=== PATIENT | female | born 2000 | race Two or more races ===

== ENCOUNTER 2024-09-06 15:46 | Emergency (ER) | payer SELFPAY ==
[2024-09-06 15:54] VITALS: BP 137/68; PULSE 147; RESP 20; TEMP 38.8; O2SAT 96
--- NOTE | 2024-09-06 16:00 | ED.ALLEREA ---
HPI - Allergic Reaction General Chief complaint: Allergic Reaction Stated complaint: allergic reaction Time Seen by Provider: 09/06/24 16:00 Focused HPI: Patient is a 24-year-old female who presents the ED with report of fever and cough. Patient reports she was started on clindamycin yesterday for an infection of her left lower wisdom tooth. This was prescribed by her dentist. She developed a cough last night, which has persisted into today. Also c/o fatigue, body aches, sore throat, BAL. Reported fever at home prior to arrival was 102F. Has not taken anything for her symptoms. Denies sick contacts. Denies rash or itching. Denies shortness of breath aside from with coughing fits. Denies difficulty swallowing. GENERAL: Mildly ill-appearing, morbidly obese with BMI of 42.3, and in no acute distress. HEAD: Normocephalic, atraumatic. ENT: No focal abscess surrounding L wisdom tooth, no significant gum inflammation. No drainage. MMs moist. CHEST: Clear to auscultation. ?No respiratory distress. Frequent coughing on exam. HEART: Tachycardic with regular rhythm.? NEURO: ?Alert and oriented x3. Patient screened in triage and initial orders placed.? ?Additional care and disposition to be based upon?diagnostic testing and treatment. Source: patient Mode of arrival: ambulatory Limitations: no limitations Related Data Allergies Allergy/AdvReac Type Severity Reaction Status Date / Time No Known Allergies Allergy Verified 09/06/24 15:59 Course Vital Signs Vital signs: Vital Signs Temperature 101.9 F H 09/06/24 15:54 Pulse Rate 147 H 09/06/24 15:54 Respiratory Rate 20 09/06/24 15:54 Blood Pressure 137/68 09/06/24 15:54 Pulse Oximetry 96 09/06/24 15:54 Oxygen Delivery Room Air 09/06/24 15:54 Temperature 101.9 F H 09/06/24 15:54 Pulse Rate 147 H 09/06/24 15:54 Respiratory Rate 20 09/06/24 15:54 Blood Pressure 137/68 09/06/24 15:54 Pulse Oximetry 96 09/06/24 15:54 Oxygen Delivery Room Air 09/06/24 15:54 MDM - Allergic Reaction MDM Narrative Medical decision making narrative: MSE by BALA in triage. Patient left the facility after initial MSE prior to any further workup or care. Discharge Plan Discharge Clinical Impression: Cough Qualifiers: Cough type: unspecified Qualified Code(s): R05.9 - Cough, unspecified Fever Qualifiers: Fever type: unspecified Qualified Code(s): R50.9 - Fever, unspecified Patient Disposition: Elopement After Seen by Prov Condition: Stable Patient Language: [place] Follow-up/Referrals: PHYSICIAN,NUT THREADER [Primary Care Provider] -
--- NOTE | 2024-09-06 18:24 | PC.NURSE ---
while this RN was checking a new patient in they tell ED security they will be leaving ED. pt ambulates with steady gait.
== END 2024-09-06 18:24 | disposition left against medical advice (07) ==
LOC: ANHED 18:52
PROVIDERS: Emergency Provider Physician Assistant
DX: R50.9 Fever, unspecified (principal); R05.9 Cough, unspecified; E66.01 Morbid (severe) obesity due to excess calories; Z68.41 Body mass index [BMI] 40.0-44.9, adult
CPT/HCPCS: 99281; 99283

== ENCOUNTER 2025-01-29 00:37 | Emergency (ER) | payer BC, SELFPAY ==
--- NOTE | ~2025-01-29 | CT_ITS ---
Non-contrast CT scan of the Abdomen and Pelvis Clinical indication: Left flank pain Technique: 2.5 mm axial scans were obtained through the abdomen and pelvis without intravenous or or al contrast. Dose reduction technique was used on this scan by utilizing automated exposure control a nd iterative reconstruction technique. The dose-length product (DLP) was 640.06 mGy-cm. Findings: Images through the lung bases reveal no abnormalities. There is a 3.5 mm stone at the left UVJ, with mild left hydroureteronephrosis. No right renal or righ t ureteral stone. No right hydronephrosis. The liver, spleen, pancreas, gallbladder, and adrenals appear normal. There is no aortic aneurysm. There is no evidence of bowel obstruction. Images through the pelvis were performed. There is no evidence of ascites or lymphadenopathy. Urinary bladder otherwise unremarkable. No pelvic mass seen. No ascites. Impression: 3.5 mm left UVJ stone, with mild left hydroureteronephrosis. Reviewed, dictated and finalized at [facility]. Impression: 3.5 mm left UVJ stone, with mild left hydroureteronephrosis.
[2025-01-29 00:41] VITALS: BP 137/81; PULSE 93; RESP 18; TEMP 36.4; O2SAT 98
[2025-01-29 01:22] LABS: BEDSIDEPREGUCG Negative (Negative)
[2025-01-29 01:38] LABS: Add Urine Microscopic? YES; Appearance Urine Clear (Clear); Glucose Urine UA Negative (Negative); Leukocyte Esterase Ur 1+ LEU/UL (Negative); Need Manual Microscopic Reviewed; Nitrate Urine Positive (Negative); Specific Grav Ur 1.037 (1.001-1.035)
[2025-01-29 03:15] LABS: Alanine Aminotransferase 27 U/L (6-35); Albumin Level 4.5 g/dL (3.5-5.1); Alkaline Phosphatase 75 U/L (38-126); Anion Gap 9 mmol/L (4-12); Aspartate Amino Transferase 29 U/L (14-36); Bilirubin,Total 0.5 mg/dL (0.2-1.3); Blood Urea Nitrogen 10 mg/dL (7-17); Calcium 9.5 mg/dL (8.4-10.2); Carbon Dioxide 20 mmol/L (22-30); Chloride 105 mmol/L (98-107); Estimated CRCL calculation 93 ml/min; Estimated Glomerular Filt Rate > 60; Glucose 122 mg/dL (65-110); Potassium 4.5 mmol/L (3.4-5.0); Sodium 134 mmol/L (137-145); Total Protein 8.2 g/dL (6.3-8.2)
[2025-01-29] MEDS: ONDANSETRON INJ 4 MG/2 ML VIAL IV PUSH (03:56)
[2025-01-29] MEDS: MORPHINE SULFATE (*CRX) 4 MG/ML INJ IV PUSH (03:56)
--- NOTE | 2025-01-29 04:02 | ED.FEMALEGU ---
HPI - Female Genitourinary General Chief complaint: Urogenital-Female Stated complaint: Lower back pain, pelvic pain, issues with urine Time Seen by Provider: 01/29/25 03:35 Source: patient Mode of arrival: ambulatory Limitations: no limitations History of Present Illness HPI Narrative: Patient presents with low back pain/left flank pain that radiates towards her pelvis/groin. She also reports that she has been having issues with urination. In particular she reports urinary urgency and dysuria. No recent travel or antibiotics. Symptoms started last night. Initially been nauseated but received Zofran in the interim which she states has helped. No vomiting. Denies any hematuria. Patient reports that she will void but does not seem to be getting a lot out. She has been having chills. She reports 7 years ago she had a complicated urinary tract infection that required hospitalization. She took a dose of azo at 11:00 p.m the did not provide any relief. Her last menstrual period was November 30 through December 04. She states that she is on control in she resumes this she often skips a month so it is not unusual that her last period was 2 months ago. No history of kidney stone. Last oral intake was approximately 10:30 p.m.. Her last bowel movement was hour ago and was diarrheal but without blood. Related Data Allergies Allergy/AdvReac Type Severity Reaction Status Date / Time No Known Allergies Allergy Verified 09/06/24 15:59 PMFSH Past Medical History Medical History Uses control History of UTI approx 2017, required hospitalization Exam Narrative: GENERAL: Well-appearing, well-nourished, and in no acute distress. HEAD: Normocephalic, atraumatic. EYES: Non injected, non icteric ENT: Nares clear, no rhinorrhea or epistaxis. Gross auditory acuity intact. NECK: Supple. No meningismus. CHEST: Speaking in full sentences. No respiratory distress. HEART: Regular rate and rhythm. . ABDOMEN: Obese but Soft, nondistended. Mild tenderness to palpation throughout though more so in LUQ. No rigidity or guarding. Not peritoneal. BACK: No ecchymosis. Mild L CVA tenderness. Not on R. EXTREMITIES: Normal range of motion. No lower extremity edema. SKIN: Warm, dry, no rash. NEURO: No focal deficits. Alert and oriented. Answering questions. Following commands. Normal speech without aphasia or dysarthria. PSYCH: Normal mood and affect. Course Vital Signs Vital signs: Vital Signs Temperature 97.6 F 01/29/25 00:41 Pulse Rate 93 01/29/25 00:41 Respiratory Rate 18 01/29/25 00:41 Blood Pressure 137/81 01/29/25 00:41 Pulse Oximetry 98 01/29/25 00:41 Oxygen Delivery Room Air 01/29/25 00:41 Temperature 97.6 F 01/29/25 00:41 Pulse Rate 68 01/29/25 05:05 Respiratory Rate 18 01/29/25 05:05 Blood Pressure 124/82 01/29/25 05:05 Pulse Oximetry 99 01/29/25 05:05 Oxygen Delivery Room Air 01/29/25 00:41 MDM - Female Genitourinary MDM Narrative Medical decision making narrative: Patient presents with report of low back pain/left flank pain radiating into pelvis/groin. Associated with nausea but no vomiting. Also having some diarrhea. She describes urinary urgency and dysuria with not a lot of urine output when she attempts. Also having chills. In the emergency department they are afebrile with vital signs within normal limits. Urinalysis with only rare bacteria. Not significant white blood cells although it does test positive for leukocyte esterase and nitrate; there RBCs. Normal renal function. She is experiencing urgency, low void, and dysuria, so reasonable to treat. Today's sample does reflex to culture although no previous culture to guide therapy. Will give ceftriaxone. test negative. She has a leukocytosis. CT scan shows a kidney stone. It is of the size and location that should be amenable to expulsion therapy however will discuss with urology given the abnormal urinalysis. Discussed with urologist control equipment electrician who notes that unlikely infection (nitrate positive due to Azo and no WBCs), but still low harm in giving antibiotics. Will give a course to cover pyelo although again, low suspicion for this. Patient given tamsulosin ketorolac as well as another dose of medication for nausea. Provided strainer. Advised to take the course of medications both for expulsion therapy as well as antibiotic and follow-up with urology. Also given strict emergency department return precautions. Otherwise stable for discharge. Differential Diagnosis Differential diagnosis: Likely urinary tract infection (Pyelonephritis) and other (Kidney stone, diverticulitis, constipation, diarrhea/colitis/enteritis, gastritis) Lab Data Attestation: I reviewed the patient's lab results. 01/29/25 03:57 01/29/25 02:57 Labs: Lab Results 01/29/25 01/29/25 01/29/25 Range/Units 01:17 01:19 02:57 WBC (4.5-10.0) K/mm3 RBC (4.2-5.4) M/mm3 Hgb (12.0-15.0) g/dL Hct (37.0-47.0) % MCV (80-100) fl MCH (26-34) pg MCHC (32-36) g/dl RDW (11.5-14.5) % Plt Count (150-375) k/mm3 MPV (7.4-10.4) fl Immature Gran % (Auto) (0-0.5) % Neut % (Auto) (45.5-73.1) % Lymph % (Auto) (18.3-44.2) % Collin % (Auto) (2.6-8.5) % Eos % (Auto) (0-4.4) % Baso % (Auto) (0.2-1.2) % Lymph # (Auto) (0.9-3.2) K/mm3 Collin # (Auto) (0.1-0.6) K/mm3 Eos # (Auto) (0-0.3) K/mm3 Baso # (Auto) (0.0-0.1) K/mm3 Abs Immat Gran (auto) (0.00-0.031) K/mm3 Absolute Neuts (auto) (1.3-6.7) K/mm3 Absolute Nucleated RBC (0.0-0.012) K/mm3 Nucleated RBC % (0.0-0.2) % Sodium 134 L (137-145) mmol/L Potassium 4.5 (3.4-5.0) mmol/L Chloride 105 (98-107) mmol/L Carbon Dioxide 20 L (22-30) mmol/L Anion Gap 9 (4-12) mmol/L BUN 10 (7-17) mg/dL Creatinine 0.98 (0.7-1.0) mg/dL Estim Creat Clear Calc 93 ml/min Estimated GFR > 60 (59 - ) Glucose 122 H (65-110) mg/dL Calcium 9.5 (8.4-10.2) mg/dL Total Bilirubin 0.5 (0.2-1.3) mg/dL AST 29 (14-36) U/L ALT 27 (6-35) U/L Alkaline Phosphatase 75 (38-126) U/L Total Protein 8.2 (6.3-8.2) g/dL Albumin 4.5 (3.5-5.1) g/dL Urine Color [place] H (Yellow) Urine Appearance Clear (Clear) Urine pH 5.0 (5.0-9.0) Ur Specific [place] 1.037 H (1.001-1.035) Urine Protein 1+ H (Negative) mg/dL Urine Glucose (UA) Negative (Negative) mg/dL Urine Ketones Negative (Negative) mg/dL Ur Blood (Man) 2+ H (Negative) Urine Nitrate Positive H (Negative) Urine Bilirubin 1+ H (Negative) Urine Urobilinogen 1.0 (<2.0) mg/dL Add Ur Microanalysis Reviewed Leukocyte Esterase Rfl 1+ H (Negative) MENDEZ/UL Urine RBC 21-50 H (0-2) /hpf Urine WBC 0-5 (0-3) /hpf Ur Squamous Epith Cells Few (Few) /hpf Urine Bacteria Rare /hpf Urine Casts 3-5 POC Urine HCG, Qual Negative (Negative) 01/29/25 Range/Units 03:57 WBC 13.5 H (4.5-10.0) K/mm3 RBC 4.53 (4.2-5.4) M/mm3 Hgb 13.3 (12.0-15.0) g/dL Hct 41.0 (37.0-47.0) % MCV 90.5 (80-100) fl MCH 29.4 (26-34) pg MCHC 32.4 (32-36) g/dl RDW 13.0 (11.5-14.5) % Plt Count 227 (150-375) k/mm3 MPV 12.5 H (7.4-10.4) fl Immature Gran % (Auto) 0.4 (0-0.5) % Neut % (Auto) 83.5 H (45.5-73.1) % Lymph % (Auto) 11.6 L (18.3-44.2) % Collin % (Auto) 4.0 (2.6-8.5) % Eos % (Auto) 0.4 (0-4.4) % Baso % (Auto) 0.1 L (0.2-1.2) % Lymph # (Auto) 1.56 (0.9-3.2) K/mm3 [place] # (Auto) 0.5 (0.1-0.6) K/mm3 Eos # (Auto) 0.1 (0-0.3) K/mm3 Baso # (Auto) 0.0 (0.0-0.1) K/mm3 Abs Immat Gran (auto) 0.05 H (0.00-0.031) K/mm3 Absolute Neuts (auto) 11.2 H (1.3-6.7) K/mm3 Absolute Nucleated RBC 0.000 (0.0-0.012) K/mm3 Nucleated RBC % 0.0 (0.0-0.2) % Sodium (137-145) mmol/L Potassium (3.4-5.0) mmol/L Chloride (98-107) mmol/L Carbon Dioxide (22-30) mmol/L Anion Gap (4-12) mmol/L BUN (7-17) mg/dL Creatinine (0.7-1.0) mg/dL Estim Creat Clear Calc ml/min Estimated GFR (59 - ) Glucose (65-110) mg/dL Calcium (8.4-10.2) mg/dL Total Bilirubin (0.2-1.3) mg/dL AST (14-36) U/L ALT (6-35) U/L Alkaline Phosphatase (38-126) U/L Total Protein (6.3-8.2) g/dL Albumin (3.5-5.1) g/dL Urine Color (Yellow) Urine Appearance (Clear) Urine pH (5.0-9.0) Ur Specific [place] (1.001-1.035) Urine Protein (Negative) mg/dL Urine Glucose (UA) (Negative) mg/dL Urine Ketones (Negative) mg/dL Ur Blood (Man) (Negative) Urine Nitrate (Negative) Urine Bilirubin (Negative) Urine Urobilinogen (<2.0) mg/dL Add Ur Microanalysis Leukocyte Esterase Rfl (Negative) MENDEZ/UL Urine RBC (0-2) /hpf Urine WBC (0-3) /hpf Ur Squamous Epith Cells (Few) /hpf Urine Bacteria /hpf Urine Casts POC Urine HCG, Qual (Negative) Imaging Data Radiologist's impression: Impressions Abdomen/Pelvis CT 01/29/25 06:07 Impression: 3.5 mm left UVJ stone, with mild left hydroureteronephrosis. Discharge Plan Discharge Clinical Impression: Abnormal urinalysis, Dysuria, Left flank pain, Leukocytosis, Calculus of ureterovesical junction (UVJ) Patient Disposition: Home Condition: Stable Instructions: Antibiotic Form, Leukocytosis (ED), How to Strain Your Urine (ED), Dysuria (ED), Flank Pain (ED), Ureteral Stones (ED) Additional Instructions: Although it does not appear that you have a distinct UTI, reasonable to treat as such out of an abundance of precaution. Your urine cultures in process. You received 1st dose of IV antibiotics in the rest have been prescribed orally. You can continue to take the azo. Pyridium/phenazopyridine can help with the pain you are experiencing It can discolor your urine and tears (turn them orange). Do not wear contact lenses while taking this medication. The stone is of a size and location that it should pass spontaneously although you can assist by drinking plenty of fluids and taking the combination of medications that helps (expulsion therapy). The ondansetron/Zofran can help with nausea and vomiting. You can strain your urine to collect a stone. Follow-up with urology listed below. Return to the emergency department with any new or worsening symptoms such as intractable nausea/vomiting, intractable pain not responding to medication, fever greater than 100.4? F, etc. Patient Language: Gibralt[place] Prescriptions: New cephalexin 500 mg capsule 500 mg PO Q8H 10 Days Qty: 30 0RF tamsulosin 0.4 mg capsule 0.4 mg PO DAILY Qty: 12 0RF Rx Instructions: received first dose in ED 8/4 ketorolac 10 mg tablet 10 mg PO Q8H PRN (Reason: pain) Qty: 14 0RF Rx Instructions: maximum total duration of 5 days from all oral, intranasal, or parenteral formulations; rec'd first dose in ED 8/4 AM ondansetron 4 mg tablet,disintegrating 4 mg PO Q8H PRN (Reason: nausea and vomiting) Qty: 7 0RF Follow-up/Referrals: Dave Marinelli MD [Physician] - PHYSICIAN,CIGARETTE PACKAGE EXAMINER [Primary Care Provider] - Stand Alone Forms: Work/School Release IP Time of Disposition: 06:44
--- OUTSIDE RECORDS SUMMARY | 2025-01-29 04:04 | XMS_ITS | Clinical Summary ---
Author Organization [facility] Address [address] [place] [address] Care Team Providers Care Photo Technologist Name Role Phone No, Physician Primary Care Provider [phone] Allergies Active Allergy Reactions Criticality Noted Date Comments Penicillins Unknown,Other (See comments) Low 01/07/2019 family history of allergy to penicillins Medications norgestrel-ethi nyl estradioL (LOW-OGESTRELCharly) 0.3-30 mg-mcg per tablet Take 1 tablet by mouth daily Active nystatin 100,000 unit/mL suspension Take 5 mL (500,000 Units total) by mouth 4 (four) times a day Active clindamycin (CLEOCIN) 300 mg capsule TAKE 1 CAPSULE BY MOUTH EVERY 8 HOURS 09/05/2024 Active valACYclovir (VALTREX) 1 gram tablet 08/21/2024 Active Active Problems Problem Noted Date Diagnosed Date Vaginal discharge 11/20/2022 Overview (11/20/2022): - On exam, normal physiologic discharge noted in vaginal vault. - Wet prep concerning for some pseudohyphae, otherwise normal. - Offered patient single dose fluconazole for treatment of possible yeast infection. - Reassured patient that findings today are quite normal. - Encouraged her to reach out with any additional questions or concerns. LGSIL on Pap smear of cervix 11/19/2022 Overview (11/19/2022): - Per patient report, LSIL 02/2022. Unable to visualize result in EMR. - Follow up with repeat Pap testing in 02/2023. Pelvic and perineal pain 11/19/2022 Social History Tobacco Use Types Packs/Day Years Used Date Smoking Tobacco: Former Cigarettes Q uit: 11/26/2016 Hunger Vital Sign Answer Date Recorded Within the past 12 months, y ou worried that your food would run out before you got the money to buy more. Never true 11/21/19 23 Within the past 12 months, t he food you bought just didn't last and you didn't have money to get more. Never true 11/20/2022 Comments No Sex and Gender Information Value Date Recorded Sex Assigned at Not on file Legal Sex Female 10:00 AM CDT Gender Identity Not on file Sexual Orientation Not on file Obstetrics History Last Filed Vital Signs Vital Sign Reading Time Taken Comments Blood Pressure 118/70 09/06/2024 6:27 PM CDT Pulse 133 09/06/2024 6:27 PM CDT Temperature 38.4 C (101.2 F) 09/06/2024 6:27 PM CDT Respiratory Rate 20 09/06/2024 6:27 PM CDT Oxygen Saturation 97% 09/06/2024 6:27 PM CDT Inhaled Oxygen Concentration - - Weight 112 kg (247 lb) 09/06/2024 6:27 PM CDT Height 162.6 cm (5' 4) 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 Body Mass Index 42.4 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 Plan of Treatment Health Maintenance Due Date Last Done Comments Cervical Cancer Screening 1999 Depression Screening 1999 Hepatitis C Screening 1999 DTaP/Tdap/Td Vaccine (5 - Tdap) 2010 11/11/2004, 01/23/2000, 1999, Additional history exists HPV Vaccines (1 - 3-dose series) 2014 Regular Well Visit/Exam 18-64 2017 Covid-19 Vaccine ( season) 2024 03/22/2021, 03/01/2021 Influenza Vaccine (#1) 2025 Hepatitis B Screening Completed 1999, 000 Varicella Vaccines Completed 02/12/2014, 0 02/09/2014, 12/06/2001 Pneumococcal vaccine <65 Aged Out No longer eligible based on patient's age to complete this topic Insurance [facility] CHOICE PLUS Care Teams Photo Technologist Relationship Specialty Start Date End Date No, Physician PCP - General 11/20/22
--- OUTSIDE RECORDS SUMMARY | 2025-01-29 04:04 | XMS_ITS | Clinical Summary ---
Author Organization [facility] Address [address] [place] [address] Care Team Providers Care Claims Sorter Name Role Phone Unavailable Primary Care Provider Unavailabl e Allergies Active Allergy Reactions Criticality Noted Date Comments Penicillins Other (See Comments),Unknown Low 01/07/2019 family history of allergy to penicillins Medications norgestrel-ethin yl estradioL 0.3-30 mg-mcg Tablet Take 1 Tablet by mouth daily. Active metroNIDAZOLE (FLAGYL) 500 mg tablet Take 1 Tablet by mouth 3 times daily. 01/04/2024 Active Active Problems No known active problems Encounters Date Type Department Care Team Description 01/10/2025 External Device Data [facility] ABSTRACTION Provider, Abstract 01/10/2025 External Device Data [facility] ABSTRACTION Provider, Abstract 12/12/2024 External Device Data [facility] ABSTRACTION Provider, Abstract 11/21/2024 External Device Data [facility] ABSTRACTION Provider, Abstract 11/17/2024 External Device Data [facility] ABSTRACTION Provider, Abstract 11/15/2024 External Device Data [facility] ABSTRACTION Provider, Abstract 11/14/2024 External Device Data [facility] ABSTRACTION Provider, Abstract from Last 3 Months Social History Tobacco Use Types Packs/Day Years Used Date Smoking Tobacco: Never Smokeless Tobacco: Never Tobacco Cessation:Counseling Given: Not Answered Comments No Sex and Gender Information Value Date Recorded Sex Assigned at Not on file Legal Sex Female 12:24 PM CDT Gender Identity Not on file Sexual Orientation Not on file Last Filed Vital Signs Vital Sign Reading Time Taken Comments Blood Pressure - - Pulse - - Temperature - - Respiratory Rate - - Oxygen Saturation - - Inhaled Oxygen Concentration - - Weight 108.9 kg (240 lb) 03/30/2024 9:29 AM CDT Height 162.6 cm (5' 4) 03/30/2024 9:29 AM CDT Body Mass Index 41.2 03/30/2024 9:29 AM CDT Plan of Treatment Health Maintenance Due Date Last Done Comments DTAP/TDAP/TD VACCINES (1 - Tdap) 2018 HEPATITIS B VACCINES (1 of 3 - 19+ 3-dose series) 2018 CERVICAL CANCER SCREENING 2020 HPV/Cotest (21-29) 2020 PAP SMEAR 2020 HPV VACCINES (3 - 3-dose series) 09/14/2023 05/06/20 23, 03/16/2023 INFLUENZA VACCINE (#1) 2025 Insurance [facility] [id number]
--- OUTSIDE RECORDS SUMMARY | 2025-01-29 04:04 | XMS_ITS | Referral Summary ---
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
--- OUTSIDE RECORDS SUMMARY | 2025-01-29 04:04 | XMS_ITS | Clinical Summary ---
Author Organization [facility] Address [address] [place] [address] Phone Care Team Providers Care Social Work Associate Name Role Phone Provider, None Primary Care Provider Blake Huston MD Unavailable Allergies Active Allergy Reactions Criticality Noted Date Comments Penicillins Other (see Comments) 01/07/2019 family history of allergy to penicillins Medications Low-Ogestrel 0.3-30 MG-MCG Tablet Take by mouth daily. 10/13/2022 Active metroNIDAZOLE (Flagyl) 500 MG Tablet Take 1 Tablet by mouth 3 times daily. 30 Tablet 03/17/2024 Active naproxen (NAPROSYN) 500 MG Tablet Take 1 Tablet by mouth 2 times daily as needed for Mild or more severe pain. 20 Tablet 04/17/2024 Active Active Problems No known active problems Family History Medical History Relation Name Comments No Known Problems Maternal Grandfather Cancer Maternal Grandmother Cervical Cancer Maternal Grandmother Diabetes Maternal Grandmother Congestive Heart Failure Mother Relation Name Status Comments Maternal Grandfather Maternal Grandmother Mother Alive Social History Tobacco Use Types Packs/Day Years Used Date Smoking Tobacco: Never Smokeless Tobacco: Never Tobacco Cessation:Counseling Given: Not Answered Alcohol Use Standard Drinks/Week Comments Yes 0 (1 standard drink = 0.6 oz pur e alcohol) Rare Sexually Active Control Partners Comments Not Currently Male Comments No Sex and Gender Information Value Date Recorded Sex Assigned at Not on file 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 Gender Identity Not on file Sexual Orientation Not on file Last Filed Vital Signs Vital Sign Reading Time Taken Comments Blood Pressure 132/82 04/17/2024 10:15 AM CDT Pulse 85 04/17/2024 10:15 AM CDT Temperature 36.7 C (98 F) 04/17/2024 10:15 AM CDT Respiratory Rate 18 04/17/2024 10:15 AM CDT Oxygen Saturation 99% 04/17/2024 10:15 AM CDT Inhaled Oxygen Concentration - - Weight 108.9 kg (240 lb) 04/17/2024 9:13 AM CDT Height 162.6 cm (5' 4) 04/17/2024 9:13 AM CDT Body Mass Index 41.2 04/17/2024 9:13 AM CDT Plan of Treatment Health Maintenance Due Date Last Done Comments Hepatitis C Virus (HCV) Screening 1999 TdaP Immunization 1999 Hepatitis B Immunization (3 of 3 - 3-dose series) 1999 1999, 1999 Pap Smear 2020 Human Papillomavirus (HPV) Immunization (3 - 3-dose series) 09/14/2023 05/06/2023, 03/16/2023 SARS-COV-2 Immunization (3 - season) 2024 03/22/2021, 03/01/2021 Influenza Immunization (#1) 2025 Respiratory Syncytial Virus (RSV) Immunization (Adult) (1 - 1-dose 75+ series) 2074 DTaP/Tdap/Td Immunization Discontinued 2004, 01/23/2000, 1999, Additional history exists Meningococcal Immunization (ACWY) Completed 03/16/2017 Pneumococcal Immunization Combined Aged Out No longer eligible based on patient's age to complete this topic Rotavirus Immunization Aged Out No lo nger eligible based on patient's age to complete this topic Insurance [facility] Care Teams Social Work Associate Relationship Specialty Start Date End Date Provider, None [place] PCP - General 06/15/18 Blake Gaffney MD [address] [address] Consulting Physician Colon and Rectal Surgery 11/05/22
[2025-01-29 04:17] LABS: Hematocrit 41.0 % (37.0-47.0); Hemoglobin 13.3 g/dL (12.0-15.0); Immature Granulocyte Percent A 0.4 % (0-0.5); Lymphocytes Absolute Auto 1.56 K/mm3 (0.9-3.2); Mean Corpuscular HGB Conc 32.4 g/dl (32-36); Mean Corpuscular Hemoglobin 29.4 pg (26-34); Mean Corpuscular Volume 90.5 fl (80-100); Nucleated Red Blood Cells Absolute Auto 0.000 K/mm3 (0.0-0.012); Nucleated Red Blood Cells Perc 0.0 % (0.0-0.2); Platelet Count Result 227 k/mm3 (150-375); Red Blood Count 4.53 M/mm3 (4.2-5.4); White Blood Count 13.5 K/mm3 (4.5-10.0)
[2025-01-29] MEDS: cefTRIAXone 1 GM in SODIUM CHLORIDE 0.9% IV 50 ML 100 ML IVPB (05:03)
[2025-01-29] MEDS: SODIUM CHLORIDE 0.9% IV 1,000 ML 999 ML IV CONT (05:03)
[2025-01-29 05:05] VITALS: BP 124/82; PULSE 68; RESP 18; O2SAT 99
[2025-01-29] MEDS: KETOROLAC 15 MG/ML VIAL (*BKC) IV PUSH (07:04)
[2025-01-29] MEDS: TAMSULOSIN HCL 0.4 MG CAPSULE PO (07:04)
[2025-01-29] MEDS: PROCHLORPERAZINE EDISYLATE 10 MG/2 ML VIAL 5 MG IV PUSH (07:05)
== END 2025-01-29 07:54 | disposition home or self-care (01) ==
PROVIDERS: Emergency Provider Student in an Organized Health Care Education/Training Program
DX: N13.2 Hydronephrosis with renal and ureteral calculous obstruction (principal); D72.829 Elevated white blood cell count, unspecified; R30.0 Dysuria; R82.998 Other abnormal findings in urine; Z87.440 Personal history of urinary (tract) infections
CPT/HCPCS: 36415; 74176; 80053; 81001; 81025; 85025; 87086; 96365; 96375; 99284; A9270; J0696; J0780; J1885; J2270; J2405; J7030